=== PATIENT | male | born 1985 | race Caucasian/White ===

== ENCOUNTER → 2022-02-04 | Outpatient (CLI) | payer OTHER ==
--- NOTE | 2022-02-04 09:09 | CT ---
EXAMINATION TYPE: CT ankle LT wo con DATE OF EXAM: 02/04/2022 INDICATION: Pain Lt ankle CT DLP: 317.30 mGy.cm Automated Exposure Control for Dose Reduction was Utilized. TECHNIQUE AND CONTRAST: CT scan of the left ankle without IV contrast administration. 3-D reconstruction images were generate d on an independent workstation and reviewed. COMPARISON: None available FINDINGS: bone chip is seen at the posterior medial aspect of the distal tibial end measuring up to 1 4 mm likely representing an avulsion fracture. Few bony fragments are seen at the inferior aspect of the medial malleolus, possibly representing avulsion fracture. They measure up to 3 mm. Tiny bone fragments are seen along the proximal and distal aspects of the superior portion of the ronda icular bone, possibly degenerative or representing sequela of previous trauma. No other definite acut e fracture line identified. Slight widening of the medial aspect of the ankle mortise. Smooth talar dome. No evidence of ankle dislocation. Tiny posterior calcaneal enthesophyte at the ins ertion of the Achilles tendon. Soft tissue swelling and subcutaneous edema of the lower leg and proxi mal foot. No sizable ankle joint effusion. IMPRESSION: Avulsion fracture of the posteromedial aspect of the distal tibial end and to a lesser extent the med ial malleolus as described above. Slight widening of the medial aspect of the ankle mortise, please correlate clinically. Underlying li gamentous injury cannot be excluded. Further MRI assessment can be considered to rule out any ligamen tous or other soft tissue injury. Other incidental findings as described above.
== END | disposition home or self-care (01) ==
LOC: RADCTMAIN 06:55
PROVIDERS: ATTEND Orthopaedic Surgery
DX: S82.52XA Displaced fracture of medial malleolus of left tibia, initial encounter for closed fracture (principal); M25.562 Pain in left knee; M25.572 Pain in left ankle and joints of left foot